=== PATIENT | male | born 1955 | race Caucasian/White ===

== ENCOUNTER 2018-04-05 05:29 | Day surgery (SDC) | payer OTHER ==
[~2018-04-05] VITALS: Ht 170.2 cm; Wt 82.6 kg
--- NOTE | ~2018-04-05 | PATH ---
[facility] [address] [place] [address] PATHOLOGY RPT PROCEDURE Name: YENY HUNTER J Room #: DEP [facility].#: [id number] Admission: 04/05/18 Date of : 59 Discharge: 04/05/18 Report #: [id number] Path Case #: [id number] [facility] Accession Number: [id number] . 01 Material submitted: . L4-5 DISC . 01 Clinical history: . Right lumbar stenosis . 02 Diagnosis: Disc material, L4-5, discectomy: - Cartilaginous tissue showing reactive changes. - Fragments of dense fibrous tissue with mild chronic inflammation. - Fragments of reactive bone. (IUV:jamie; 04/07/2018) QMS/04/07/2018 . 02 Electronically signed: . Dior Perla MD, Pathologist NPI- [id number] . 01 Gross description: . The specimen is received in formalin, labeled "Yeny Hunter, L4-5 disc" and consists of multiple fragments of pink-becker fibrous tissue and bone measuring 2.3 x 2.1 x 0.4 cm in aggregate. The specimen is entirely submitted in A1 following decalcification. (SDY; 04/05/2018) SYU/SYU . 02 Pathologist provided ICD-10: M48.061 . 02 CPT . 890024, 183889 Performed at: [address], [place] [id number] MD Ravi Hale MD Phone: [phone] Performed at: [address] [id number] MD Dior Perla MD Phone: [phone]
--- NOTE | ~2018-04-05 | EKG ---
[address] [address] ELECTROCARDIOGRAM REPORT Name: YENY BUCK J Room #: 150-4 [facility]#: [id number] Admission: 04/05/18 Attend Phys: Yeny Rojas MD Discharge: Date of : 59 Report #: [id number] THIS REPORT FOR: //name// [facility] Test Date: 2018-04-05 Test Time: 07:31:43 Pat Name: YENY BUCK Department: Room: 150 4 Gender: M Envelope Maker: carlos : 1955 Requested By: Yeny Rojas Order Number: [id number] MD: Jeremi Schmitz Measurements Intervals [place] Rate: 92 P: 61 MS: 143 QRS: 73 QRSD: 84 T: 67 QT: 338 QTc: 419 Interpretive Statements Sinus rhythm Borderline T wave abnormalities Baseline wander in lead(s) V1 No previous ECG available for comparison Electronically Signed On 04-06-2018 8:38:27 CDT by Jeremi Schmitz [email or web address] <ELECTRONICALLY SIGNED> By: Jeremi Schmitz MD, [facility] 04/06/18 0838 D: 08/730 0 Jeremi Schmitz MD, FACC /EPI
--- NOTE | ~2018-04-05 | O ---
[facility] [place] [address] OPERATIVE REPORT Name: MINA BUCK Room #: DEP [facility]#: [id number] Admission: 04/05/18 Attend Phys: Mina Rojas MD Discharge: 04/05/18 Date of : 59 Report #: [id number] THIS REPORT FOR: //name// CC: Mina Espitia DATE OF SERVICE: 04/05/2018 PREOPERATIVE DIAGNOSIS: Herniated lumbar disk, L4-L5 right with radiculopathy. POSTOPERATIVE DIAGNOSIS: Herniated lumbar disk, L4-L5 right with radiculopathy. PROCEDURE: Lumbar laminectomy and diskectomy with foraminotomy L4-L5, right. SURGEON: Mina Rojas MD. INDICATIONS: This 62-year-old gentleman complains of back and radiating right leg pain, which had been a problem over the past 8 months. Symptoms started with a work-related bending and lifting injury. Subsequent clinical and radiographic evaluation revealed multilevel degenerative disk disease with some disk bulging at each level, both had large extruded disk fragment. There is, however, a far lateral right disk extrusion causing foraminal narrowing and nerve root impingement. He is not improved with conservative treatment including time, anti-inflammatories therapy and injections. He is still quite symptomatic with significant radiating right leg pain. Therefore, we have elected to go ahead with surgical laminectomy, diskectomy, and foraminotomy on the right side, where the disk prominence and nerve root impingement seems to be most severe. I have explained, however, to the patient and his that he does have other levels of degenerative disk change with disk bulging at each level and some of his symptoms are probably related to these more chronic, generalized degenerative problems. Hopefully, we will see some symptomatic improvement with regard to his new radiating right leg pain. DESCRIPTION OF PROCEDURE: The patient was taken to the operating room where he was placed under general anesthesia. Prophylactic intravenous antibiotics were administered. He was positioned in the prone position and the low back was meticulously prepped and draped. C-arm was used to visualize the back at appropriate level. A skin incision was made just to the right of midline overlying the L4-L5 interspace. This was carried through subcutaneous tissues and fascia and the paraspinal muscles were retracted out laterally. The ligamentum at the L4-L5 interspace was excised and a moderate laminotomy in the inferior aspect of L4 and the superior aspect of L5 was created. This was extended laterally undercutting the facet joint and removing the medial third of the facet. The canal was moderately tight as a result of a combination of disk bulging, facet hypertrophy and hypertrophy of ligamentum. The L4 nerve root seemed to be displaced superiorly and laterally by prominent firm disk debris, [facility] [address] [place] [address] OPERATIVE REPORT Name: MINA BUCK Room #: DEP [facility]#: [id number] Admission: 04/05/18 Attend Phys: Mina Rojas MD Discharge: 04/05/18 Date of : 59 Report #: [id number] which had extended from the disk space proximally and laterally. This was confirmed with further C-arm views placing a probe at the level of the disk space to confirm that I was at the appropriate level. The prominence extruded disk material was found to be quite firm and fibrotic with some areas of calcification suggesting this had been present for some time. There were no truly loose disk fragments in the canal. The area of firm, fibrotic and calcified disk was removed with some difficulty using a small pituitary rongeurs. This did result in significant improvement in the canal and neural foramina. The nerve root seemed to be freed up nicely. It was rather a deformed and erythematous consistent with some chronic compression, but seemed to be freed up adequately. At the conclusion of this decompression, the disk space itself was entered with pituitary rongeurs and a moderate amount of degenerative disk debris was removed from the disk space. A C-arm view with a pituitary in the disk space was taken to confirm that I was at the appropriate L4-L5 level. Once the decompression had been completed, good hemostasis was established with Gelfoam, thrombin and cottonoids with gentle pressure for several minutes. The epidural space was then filled with 40 mg of Depo-Medrol and the laminotomy defect was covered with a small sheet of Gelfoam soaked in thrombin. The fascia and muscle layer was then closed with multiple #1 Vicryl sutures. The subcutaneous tissues were closed with 0 Monocryl. The skin was closed with a 2-0 nylon suture. A sterile dressing was applied. The patient was awakened and returned to recovery room in good condition. <ELECTRONICALLY SIGNED> By: Mina Rojas MD 04/09/18 0906 1211 1234 Mina Rojas MD /nt
[~2018-04-05 05:29] MED LIST: FLEXERIL PO; METFORMIN HCL500 MG PO; NEURONTIN 300M300 M2 PO; NORVASC5 MG PO; PRINIVIL20 M1 PO
[2018-04-05 07:46] VITALS: BP 139/97
[2018-04-05 12:28] VITALS: BP 139/97
[2018-04-05 12:40] VITALS: BP 139/97
== END 2018-04-05 12:30 | disposition home or self-care (01) ==
LOC: OR 05:29 → TBA 05:29 → OR 10:08
DX: M51.16 Intervertebral disc disorders with radiculopathy, lumbar region (principal); I10 Essential (primary) hypertension; E11.9 Type 2 diabetes mellitus without complications; Z98.890 Other specified postprocedural states; F17.210 Nicotine dependence, cigarettes, uncomplicated; Z79.899 Other long term (current) drug therapy
CPT/HCPCS: 50010; 50101; 50402; 50704; 50850; 56525; 62110; 62900; 70005